=== PATIENT | male | born 1955 ===

== ENCOUNTER → 2019-03-17 | Day surgery (SDC) | payer OTHER ==
[~2019-03-17] MED LIST: ALTACE10 MG PO; AMLODIPINE BESY10 MG PO; ATORVASTATIN CA20 MG PO; GLIPIZIDE ER10 MG PO; METOPR PO; SINJARDY PO; TAMSULOSIN PO
== END | disposition home or self-care (01) ==
LOC: ADM 03-14 10:15 → CIR.AMB 05:15
DX: D17.0 Benign lipomatous neoplasm of skin and subcutaneous tissue of head, face and neck (principal); D23.5 Other benign neoplasm of skin of trunk; L72.0 Epidermal cyst